=== PATIENT | male | born 1995 | race African-American/Black ===

== ENCOUNTER 2019-07-08 11:52 | Emergency (ER) | payer OTHER ==
[~2019-07-08] VITALS: Ht 172.7 cm; Wt 61.2 kg
--- NOTE | 2019-07-08 11:52 | NUR ---
Patient to bed 2 and gown. Side rails up.
[2019-07-08 12:07] VITALS: BP_SYST 122
[2019-07-08] MEDS ORDERED: AZITHROMYCIN 250 MG TABLET PO ONE (12:45)
[2019-07-08 12:55] LABS: BILIRUBIN,URINE NEGATIVE (NEGATIVE); BLOOD, URINE NEGATIVE (NEGATIVE); CLARITY/URINE CLEAR (CLEAR); COLOR,URINE YELLOW (YELLOW); GLUCOSE,URINE NEGATIVE (NEGATIVE); KETONES,URINE NEGATIVE (NEGATIVE); LEUKOCYTE ESTERASE ,URINE TRACE (NEGATIVE); NITRITE, URINE NEGATIVE (NEGATIVE); PH,URINE 6.5 (5.0-8.0); PROTEIN URINE 1+ (NEGATIVE); UROBILINOGEN,URINE 0.2 (0.2-1.0)
[2019-07-08 12:59] LABS: BACTERIA,URINE FEW /HPF (None Seen); RBC,URINE 0-3 /HPF (0-3); WBC,URINE 20-50 /HPF (0-3)
--- NOTE | 2019-07-08 13:15 | NUR ---
PATIENT PRESENTS TO THE ER WITH TWO DAY HX OF HEMATURIA; NO TRAUMA, NO OTHER REMARKABLE S/S; PATIENT TO ER #2 AT 1200
--- NOTE | 2019-07-08 13:17 | NUR ---
ERMD EVALUATION AT 1240
[2019-07-08] MEDS ORDERED: cefTRIAXone 250 MG VIAL IM ONE (13:45)
[2019-07-08] MEDS ORDERED: LIDOCAINE 1%, 20 ML MDV 20 ML ONE (14:00)
--- NOTE | 2019-07-08 14:10 | NUR ---
REASSESSMENT; PATIENT REMAINS ASYMPTOMATIC; DISPOSITION PENDING
--- NOTE | 2019-07-08 14:40 | NUR ---
Patient given written and verbal discharge instructions and verbalizes understanding. ER MD discussed with patient the results and treatment provided. Patient in stable condition. ID arm band removed. Rx of doxycycline given. Patient educated on pain management and to follow up with PMD. Pain Scale 0/10.Opportunity for questions provided and answered. Medication side effect fact sheet provided.
[2019-07-08 15:03] VITALS: BP_SYST 116
--- NOTE | 2019-07-08 15:05 | NUR ---
PATIENT REASSESSMENT BY ERMD; ACI GIVEN PER ERMD; PATIENT DISCHARGED AMBULATORY; UNCHANGED
[2019-07-10 05:06] LABS: CHLAMYDIA TRACHOMATIS NAA Negative (Negative)
[2019-07-10 11:30] LABS: NEISSERIA GONORRHOEAE NAA Positive (Negative)
== END 2019-07-08 15:05 | disposition home or self-care (01) ==
LOC: SED 11:52
DX: N34.2 Other urethritis (principal)
CPT/HCPCS: 81000; 87086; 87491; 87591; 96372; 99283; J0696; J2001; Q0144